=== PATIENT | male | born 1945 | race Caucasian/White ===

== ENCOUNTER → 2021-06-06 | Outpatient (CLI) | payer OTHER ==
[~2021-06-06] MED LIST: ACET1TAB55 PO; AMLO1TAB25 PO; ASPI81TA26 PO; DOCU100C16 PO; FLOM0.4C39 PO; FLUO20CA20 PO; IRON65TA2 PO; ISOS120T7 PO; LOSA100T50 PO; METF10004 PO; METO1TAB7 PO; NO ITAB PO; PRIM50TA6 PO; TRAZ-257 PO
== END ==
LOC: M LABSMTC 09:00
PROVIDERS: ATTEND Anesthesiology
DX: Z01.812 Encounter for preprocedural laboratory examination (principal); Z20.822 Contact with and (suspected) exposure to COVID-19

== ENCOUNTER 2021-06-11 06:08 | Day surgery (SDC) | payer OTHER ==
[~2021-06-11] VITALS: Ht 172.7 cm; Wt 99.8 kg
[~2021-06-11 06:08] MED LIST changes: +CYCLOPENTOLATE 1% OPHTH SOLN 2 ML BTL OD SCH; +FLURBIPROFEN 0.03% OPHTH SOLN 2.5 ML OD SCH; +PHENYLEPHRINE 2.5% OPHTH SOL 2ML OD SCH; +TETRACAINE 0.5% OPHTH SOLN 4ML OD SCH
[2021-06-11] MEDS ORDERED: ACETYLCHOLINE OPHTH SOLN 1% 2ML (MIOCHOL-E) As Ordered ONE (06:39)
[2021-06-11] MEDS ORDERED: LIDOCAINE 1% SDV 5ML VIAL As Ordered ONE (06:39)
[2021-06-11] MEDS ORDERED: LR 1,000 ML IV SCH (07:00)
[2021-06-11] MEDS ORDERED: fentaNYL 100 MCG/2 ML INJECTION (J3010) As Ordered ONE (07:33)
[2021-06-11] MEDS ORDERED: MIDAZOLAM INJ 2MG/2ML VIAL (J2250 PER 1MG) As Ordered ONE ×2 (07:33→07:37)
[2021-06-11 08:20] VITALS: BP 161/75
--- NOTE | 2021-06-12 06:22 | RO ---
OPERATIVE NOTE DATE OF OPERATION: 06/11/2021 PREPOPERATIVE DIAGNOSIS: Senile cataract, right eye. POSTOPERATIVE DIAGNOSIS: Senile cataract, right eye. PROCEDURE: Phaco-emulsification with posterior chamber intraocular lens implant, right eye. SURGEON: Mike Marti Jr., DO [employer] SERGEANT: ANESTHESIA: IV sedation. DESCRIPTION OF PROCEDURE: The patient was brought into the operating room and given monitored Anesthesia by the Department of Anesthesia by IV route. The patient was then given a standard prep by using Betadine solution. One drop of Tetracaine was placed in the eye prior to the prep. The patient was then draped in the usual manner. Lid speculum was placed in the eye. The eye was grasped with 0.12 forceps for better exposure of the cornea. A 15 degree stab blade was made at 4 o'clock position. 0.3 cc of 1% Lidocaine in a syringe attached to a cannula was inserted into the anterior chamber through the port site. Viscoelastic was inserted into the anterior chamber through the port site. A 2.75 mm clear cornea keratome blade was then used to make a clear corneal wound at 3 o'clock position. A cystitome was used to start a continuous tear capsulorhexis, which was completed with Utrata forceps. BSS in a syringe attached to a cannula was then used to hydrodissect the lens nucleus. Phacoemulsification was then used to remove the lens nucleus using a [id number]-gas-[id number] type technique. After this was completed, irrigation and aspiration apparatus was brought into the anterior chamber and the remaining cortical material was removed. Provisc was inserted into the capsular bag. Then it was decided to use an Darci [employer] one-piece foldable lens. It was then dialed into place using a Reji Pusher. Once the lens was in place, irrigation and aspiration was reinserted into the anterior chamber and the remaining Provisc was removed. BSS was inserted through the port site and then the port site was hydrated. The wound was checked. There was no need for sutures at this time. The patient then had the lid speculum removed. The shield was placed over the eye and the patient was brought back to Ambulatory Surgery in stable condition. The patient tolerated the procedure well. Phacoemulsification time was 6.59 seconds. Besivance drops were placed in the eye in Ambulatory Surgery.
== END 2021-06-11 08:31 | disposition home or self-care (01) ==
LOC: M SDC 06:08
PROVIDERS: ATTEND Ophthalmology
DX: H25.11 Age-related nuclear cataract, right eye (principal); I10 Essential (primary) hypertension; I25.10 Atherosclerotic heart disease of native coronary artery without angina pectoris; K21.9 Gastro-esophageal reflux disease without esophagitis; E11.9 Type 2 diabetes mellitus without complications; G47.33 Obstructive sleep apnea (adult) (pediatric); Z87.891 Personal history of nicotine dependence; Z79.82 Long term (current) use of aspirin; Z79.84 Long term (current) use of oral hypoglycemic drugs; Z79.899 Other long term (current) drug therapy; F41.9 Anxiety disorder, unspecified; F32.9 Major depressive disorder, single episode, unspecified
CPT/HCPCS: 66984; 92015; J2250; J3010; V2788